=== PATIENT | male | born 1980 | race American Indian/Alaskan Native ===

== ENCOUNTER 2021-04-18 00:49 | Emergency (ER) | payer SELFPAY ==
[2021-04-18 01:06] VITALS: BP 128/81
[2021-04-18 01:48] LABS: Basophils % (Auto) 0.5 % (0.0-1.8); Eosinophils % (Auto) 0.3 % (0.0-4.3); Lymphocytes # (Auto) 3.9 K/mm3 (1.2-5.4); Lymphocytes % (Auto) 45.9 % (13.4-35.0); Mean Corpuscular HGB Conc 37 % (32-34); Mean Corpuscular Volume 95 fl (84-94); Monocytes # (Auto) 0.6 K/mm3 (0.0-0.8); Monocytes % (Auto) 7.2 % (0.0-7.3); Platelet Count 292 K/mm3 (140-440); Red Blood Count 4.29 M/mm3 (3.65-5.03); Red Cell Distribution Width 12.8 % (13.2-15.2)
[2021-04-18 01:52] LABS: Hematocrit 40.6 % (35.5-45.6); Hemoglobin 14.8 gm/dl (11.8-15.2)
[2021-04-18 02:06] LABS: BUN/Creatinine Ratio 14; Blood Urea Nitrogen 11 mg/dL (9-20); Calcium 9.6 mg/dL (8.4-10.2); Hemolysis Index 9
[2021-04-18 03:21] LABS: Alanine Aminotransferase 35 units/L (7-56); Albumin 4.5 g/dL (3.9-5)
[2021-04-18 03:23] LABS: Bilirubin,Direct < 0.2 mg/dL (0-0.2)
--- NOTE | 2021-04-18 03:40 | Cat Scan Report ---
CT head/brain wo con INDICATION / CLINICAL INFORMATION: headaches. TECHNIQUE: Axial CT imaging of the brain was obtained without contrast. Coronal and sagittal reformatted imaging obtained and reviewed. All CT scans at this location are performed using CT dose reduction for ALAR A by means of automated exposure control. COMPARISON: None available. FINDINGS: CT of the brain without contrast was obtained. There is no intracranial hemorrhage, mass, or midline shift identified. No extra-axial fluid collection or suggestion of acute territorial infarction. Ventricular system and basilar cisterns are unremarkable. Visualized paranasal sinuses and mastoid air cells are well aerated and clear. No evidence of sinusit is. Calvarium is unremarkable. IMPRESSION: 1. Negative noncontrasted head CT scan. Signer Name: Tiffany Ram MD Signed: 04/18/2021 3:36 AM Workstation Name: [id number]
--- NOTE | 2021-04-18 03:51 | Emergency Department Report ---
ED General Adult HPI - General Chief complaint: Weakness Stated complaint: HEADACHE/BACK PAIN/NICOLE Time Seen by Provider: 04/18/21 02:45 Source: patient Mode of arrival: Ambulatory Limitations: No Limitations - History of Present Illness Initial comments: 40-year-old male presents to ED with complaint of headache and unable to think clearly. Patient states this is been ongoing x1 year. Patient states tonight he went to a green party, had a few drinks, and then decided to come to the ER because he thought it was time to get checked out. Patient has not seen a medical professional in the last year since onset of his symptoms. Patient states they are no worse tonight, he just figured he needed to see a doctor. He denies any drug use. He denies any fever, nausea or vomiting. He denies past history of COVID-19. Patient reports social alcohol use. He denies drinking daily. -: year(s) (1) Location: head Quality: aching Consistency: intermittent Improves with: none Worsens with: none Associated Symptoms: confusion. denies: fever/chills, loss of appetite, nausea/vomiting, shortness of breath - Related Data Previous Rx's Medication Instructions Recorded Last Taken Type Butalb/Acetamin/Caff 50-325-40 1 tab PO Q6HR PRN #10 tab 04/18/21 Unknown Rx [Fioricet] Naproxen [Naprosyn] 500 mg PO BID #20 tablet 04/18/21 Unknown Rx Allergies Allergy/AdvReac Type Severity Reaction Status Date / Time No Known Allergies Allergy Verified 04/18/21 01:06 ED Review of Systems ROS: Stated complaint: HEADACHE/BACK PAIN/NICOLE Other details as noted in HPI Comment: All other systems reviewed and negative Constitutional: denies: chills, fever Gastrointestinal: denies: nausea, vomiting Neurological: headache, other (Reports unable to think clearly) ED Past Medical Hx - Past Medical History Previous Medical History?: No - Surgical History Past Surgical History?: No - Medications Home Medications: Home Medications Medication Instructions Recorded Confirmed Last Taken Type Butalb/Acetamin/Caff 50-325-40 1 tab PO Q6HR PRN #10 tab 04/18/21 Unknown Rx [Fioricet] Naproxen [Naprosyn] 500 mg PO BID #20 tablet 04/18/21 Unknown Rx ED Physical Exam - General Limitations: No Limitations General appearance: alert, in no apparent distress - Head Head exam: Present: atraumatic, normocephalic - Eye Eye exam: Present: normal appearance, PERRL, EOMI - ENT ENT exam: Present: mucous membranes moist - Neck Neck exam: Present: normal inspection - Respiratory Respiratory exam: Present: normal lung sounds bilaterally. Absent: respiratory distress - Cardiovascular Cardiovascular Exam: Present: regular rate, normal rhythm - GI/Abdominal GI/Abdominal exam: Present: soft. Absent: distended, tenderness - Extremities Exam Extremities exam: Present: normal inspection - Neurological Exam Neurological exam: Present: alert, oriented X3, CN II-XII intact, normal gait. Absent: motor sensory deficit - Psychiatric Psychiatric exam: Present: normal affect, normal mood - Skin Skin exam: Present: warm, dry, intact, normal color ED Course Vital Signs 04/18/21 01:02 Temperature 98.3 F Pulse Rate 98 H Respiratory 16 Rate Blood Pressure 128/81 O2 Sat by Pulse 96 Oximetry ED Medical Decision Making - Lab Data Result diagrams: 04/18/21 01:17 04/18/21 01:17 - Radiology Data Radiology results: report reviewed, image reviewed - Medical Decision Making 40-year-old male presents to ED with headache and unable to think clearly x1 year. Patient has no neuro deficits on exam. Vital signs are normal. CT head is unremarkable. Labs are normal. Patient will be discharged at this time. Outpatient follow-up advised, return precautions given. Critical care attestation.: If time is entered above; I have spent that time in minutes in the direct care of this critically ill patient, excluding procedure time. ED Disposition Clinical Impression: Chronic headache Disposition: - TO HOME OR SELFCARE Is pt being admited?: No Condition: Stable Instructions: General Headache Without Cause Prescriptions: Butalb/Acetamin/Caff 50-325-40 [Fioricet] 1 tab PO Q6HR PRN #10 tab PRN Reason: Headache Naproxen [Naprosyn] 500 mg PO BID #20 tablet Referrals: PRIMARY CARE, [Primary Care Provider] - 3-5 Days [facility] [Outside] - 3-5 Days [facility] [Provider Group] - 3-5 Days Time of Disposition: 03:52
[2021-04-18 04:09] LABS: Bilirubin,Urine NEG (Negative); Blood,Urine NEG (Negative); Color,Urine Yellow (Yellow); Mucus,Urine FEW /HPF; Protein,Urine <15 mg/dL mg/dL (Negative); Urobilinogen,Urine < 2.0 mg/dL (<2.0)
== END 2021-04-18 04:14 | disposition home or self-care (01) ==
LOC: ED 00:49
DX: G89.29 Other chronic pain (principal); R51.9 Headache, unspecified; Z79.899 Other long term (current) drug therapy
CPT/HCPCS: 36415; 70450; 80048; 80076; 81001; 85025; 99284